=== PATIENT | female | born 1990 | race Caucasian/White ===

== ENCOUNTER 2016-12-16 13:08 | Emergency (ER) | payer BC ==
[~2016-12-16] VITALS: Ht 172.7 cm; Wt 65.9 kg
[~2016-12-16 13:08] MED LIST: BCP TD; LORTAB 5/500 501 TAB PO; MOTRIN600 MG PO
[2016-12-16 13:12] VITALS: TEMP 98.5
[2016-12-16 14:08] LABS: PH 5 (5-8); SQUAMOUS EPITHELIAL 0-2 /hpf; URINE APPEARANCE Clear; URINE BACTERIA Rare /hpf; URINE BILIRUBIN Negative (NEGATIVE); URINE BLOOD Negative (NEGATIVE); URINE COLOR Yellow; URINE GLUCOSE Negative (NEGATIVE); URINE KETONE Negative (NEGATIVE); URINE RBC 0-2 /hpf; URINE UROBILINOGEN Negative (NEGATIVE); URINE WBC 0-2 /hpf
[2016-12-16] MEDS ORDERED: NORCO 325 MG-51 TAB PO (15:03)
[2016-12-16 15:16] LABS: BASO # 0.1 (0.0-0.2); BASO % 0.4 % (0.0-2.0); EOS # 0.3 (0.0-0.7); EOS % 1.8 % (0-4.0); GRAN # 10.9 (1.4-6.5); GRAN % 77.7 % (42.2-75.2); HEMOGLOBIN 12.4 g/dl (12.5-16.0); LYMPH # 1.9 (1.2-3.4); LYMPH % 13.3 % (20.0-51.0); MEAN CELL VOLUME 88 fl (80.0-100.0); MEAN CORPUSCULAR HEMOGLOBIN 29 pg (27.0-31.0); MEAN CORPUSCULAR HGB CONC 33 g/dl (33.0-37.0); MEAN PLATELET VOLUME 10.1 fl (7.4-10.4); MONO # 0.9 (0.1-0.6); MONO % 6.4 % (1.7-9.3); PLATELET COUNT 327 K/mm3 (130-400); RED BLOOD COUNT 4.31 M/mm3 (4.10-5.30); REDCELL DISTRIBUTION WIDTH-CV 13.2 % (11.5-14.5)
[2016-12-16 15:22] LABS: ADJUSTED CALCIUM 9.2 mg/dL (8.4-10.2); ALBUMIN 4.1 gm/dL (3.5-5.0); BILIRUBIN,TOTAL 0.5 mg/dL (0.0-1.0); CALCIUM 9.3 mg/dL (8.4-10.2); CREATININE, serum 0.69 mg/dL (0.52-1.25); POTASSIUM 3.8 mmol/L (3.4-5.0); TOTAL PROTEIN 7.4 gm/dL (6.4-8.2)
[2016-12-16 16:29] VITALS: BP 118/73; PULSE 65
== END 2016-12-16 16:45 | disposition home or self-care (01) ==
LOC: COL.ER 13:08
PROVIDERS: Emergency Medicine
DX: S22.32XA Fracture of one rib, left side, initial encounter for closed fracture (principal); W55.12XA Struck by horse, initial encounter; Y92.008 Other place in unspecified non-institutional (private) residence as the place of occurrence of the external cause; R10.12 Left upper quadrant pain; J45.909 Unspecified asthma, uncomplicated
CPT/HCPCS: A9284; Q9967

== ENCOUNTER 2019-09-09 15:34 | Inpatient (IN) | payer BC ==
[~2019-09-09] VITALS: Ht 172.7 cm; Wt 87.7 kg
[~2019-09-09 15:34] MED LIST changes: +NORCO 325 MG-51 TAB PO
[2019-09-16] VITALS (41 sets, daily range): BP systolic 98–146; BP diastolic 49–83; PULSE 66–106; TEMP 97.5–98.3
--- NOTE | 2019-09-16 07:05 | NUR ---
Patient ambulatory onto unit for scheduled induction of labor with at side. Patient oriented to room and plan of care discussed, changes into gown. Patient reports good movement, denies contractions, vaginal bleeding, or leaking of fluid. Patient denies or medical complications. EFMs on, VS taken. IV started, labs drawn, LR infusing. Admission assessment completed. Consents signed. SVE /-1. Pitocin started per protocol. Questions answered. Patient denies needs at this time. Call light within reach.
[2019-09-16] MEDS ORDERED: PRENATAL VITAMI1 TA3 PO (07:25)
[2019-09-16] MEDS ORDERED: ZYRTEC 10MG10 MG PO (07:30)
--- NOTE | 2019-09-16 07:50 | NUR ---
to bedside. Plan of care discussed. Questions answered. AROM at 0752, small amount of clear fluid noted. SVE /-1 per provider.
[2019-09-16 08:39] LABS: BASO # 0.1 (0.0-0.2); BASO % 0.4 % (0.0-2.0); EOS # 0.2 (0.0-0.7); EOS % 1.6 % (0-4.0); GRAN # 10.8 (1.4-6.5); GRAN % 72.2 % (42.2-75.2); HEMOGLOBIN 13.1 g/dl (12.5-16.0); LYMPH # 2.2 (1.2-3.4); LYMPH % 14.8 % (20.0-51.0); MEAN CELL VOLUME 88 fl (80.0-100.0); MEAN CORPUSCULAR HEMOGLOBIN 30 pg (27.0-31.0); MEAN CORPUSCULAR HGB CONC 34 g/dl (33.0-37.0); MEAN PLATELET VOLUME 11.2 fl (7.4-10.4); MONO # 1.4 (0.1-0.6); MONO % 9.4 % (1.7-9.3); PLATELET COUNT 300 K/mm3 (130-400); RED BLOOD COUNT 4.43 M/mm3 (4.10-5.30)
--- NOTE | 2019-09-16 11:05 | NUR ---
1040: Patient requesting epidural. Shahriar ESPINOZA notified. 1048: Patient sitting up for epidural placement. 1055: Lidocaine. 1059: Epidural Catheter placed. 1101: Test Dose given by Shahriar ESPINOZA, no adverse reactions noted. Patient repostioned to left tilt. Will continue to monitor. Call light within reach.
--- NOTE | 2019-09-16 11:50 | NUR ---
Patient comfortable with epidural. Castillo catheter placed. SVE /-1. Patient repositioned to right tilt with peanut ball in place.
--- NOTE | 2019-09-16 13:05 | NUR ---
to bedside. SVE 3cm per provider, unsure of presentation. Bedside ultrasound performed to verify breech presentation. Need for section discussed, questions answered.
[2019-09-16] MEDS ORDERED: PERCOCET 325 MG1 TA2 PO (14:15)
[2019-09-16] MEDS ORDERED: MOTRIN 800800 MG/TAB PO (14:15)
[2019-09-17 00:58] VITALS: BP 124/63; PULSE 60; TEMP 98.6
[2019-09-17 04:00] VITALS: BP 117/70; PULSE 62; TEMP 98
[2019-09-17 08:15] VITALS: BP 121/59; PULSE 70; TEMP 97.5
[2019-09-17 12:00] VITALS: BP 114/51; PULSE 70; TEMP 98
[2019-09-17 16:55] VITALS: BP 118/61; PULSE 65; TEMP 97.3
[2019-09-17 20:30] VITALS: BP 117/52; PULSE 74; TEMP 98.3
[2019-09-18 06:55] VITALS: BP 129/69; PULSE 65; TEMP 98.1
== END 2019-09-18 13:20 | disposition home or self-care (01) | DRG 788 ==
LOC: LDR 15:34 → OB 09-16 17:30
PROVIDERS: ADMIT Obstetrics & Gynecology
PROC: 10D00Z1 Extraction of Products of Conception, Low, Open Approach (ICD-10-PCS; principal; 2019-09-16)
PROC: 10907ZC Drainage of Amniotic Fluid, Therapeutic from Products of Conception, Via Natural or Artificial Opening (ICD-10-PCS; 2019-09-16)
PROC: 3E033VJ Introduction of Other Hormone into Peripheral Vein, Percutaneous Approach (ICD-10-PCS; 2019-09-16)
DX: O48.0 Post-term pregnancy (principal); Z3A.40 40 weeks gestation of pregnancy; O32.1XX0 Maternal care for breech presentation, not applicable or unspecified; Z37.0 Single live birth; Z88.6 Allergy status to analgesic agent
CPT/HCPCS: J0171; J0690; J1100; J1885; J2405; J2590; J7120

== ENCOUNTER 2022-03-22 07:41 | Inpatient (IN) | payer BC ==
[~2022-03-22] VITALS: Ht 170.2 cm; Wt 90.0 kg
[2022-03-22] VITALS (28 sets, daily range): BP systolic 65–135; BP diastolic 39–90; PULSE 51–96; TEMP 97.4–97.9
[~2022-03-22 07:41] MED LIST changes: +MOTRIN 800800 MG/TAB PO; +PERCOCET 325 MG1 TA2 PO; +PRENATAL VITAMI1 TA3 PO; +ZYRTEC 10MG10 MG PO
[2022-03-22] MEDS ORDERED: PRENATAL TABLET PO (08:01)
--- NOTE | 2022-03-22 08:15 | NUR ---
0745- Pt arrives on unit ambulatory with complaints of contractions since yesterday afternoon, states they have gotten closer together but not consistantly every 5 mins. States, "they come in clusters". 0750- EFM and TOCO on and tracing well. O2 sat monitor on and tracing maternal HR. VSS. Assessments completed. Pt denies LOF or VB. +FM per Pt.
--- NOTE | 2022-03-22 09:15 | NUR ---
0850- Dr Hicks at bedside. SVE. POC explained, watch Pt for another hour and recheck SVE at 1000. Pt denies questionst.
[2022-03-22 11:10] LABS: BASO % 0.2 % (0.0-2.0); EOS % 0.2 % (0.0-4.0); GRAN # 9.3 K/mm3 (1.4-6.5); GRAN % 85.9 % (42.2-75.2); HEMATOCRIT 39.7 % (37.0-47.0); HEMOGLOBIN 13.4 g/dl (12.5-16.0); LYMPH # 0.8 K/mm3 (1.2-3.4); MEAN CELL VOLUME 86 fl (80.0-100.0); MEAN CORPUSCULAR HEMOGLOBIN 29 pg (27-31); MEAN CORPUSCULAR HGB CONC 34 g/dl (33.0-37.0); MEAN PLATELET VOLUME 12.2 fl (7.4-10.4); MONO # 0.7 K/mm3 (0.1-0.6); MONO % 6.1 % (1.7-9.3); PLATELET COUNT 323 K/mm3 (130-400); RED BLOOD COUNT 4.63 M/mm3 (4.10-5.30); REDCELL DISTRIBUTION WIDTH-CV 13.2 % (11.5-14.5)
[2022-03-23 03:05] VITALS: BP 120/57; PULSE 59; TEMP 97.6
[2022-03-23 07:15] VITALS: BP 119/73; PULSE 62; TEMP 97.8
[2022-03-23] MEDS ORDERED: IBU800 M1 PO (10:34)
[2022-03-23] MEDS ORDERED: PERCOCET 325 MG1 TA2 PO (10:34)
--- NOTE | 2022-03-23 12:51 | NUR ---
[employer] offered congrats to patient while spouse was in room.
[2022-03-23 16:10] VITALS: BP 123/72; PULSE 64; TEMP 97.8
[2022-03-23 19:35] VITALS: BP 118/64; PULSE 75; TEMP 97.2
--- NOTE | 2022-03-24 03:52 | NUR ---
PAIN MEDS DUE TO BE ADMINISTERED AT 0430 [facility]" DUE TO DAYLIGHT SAVINGS TIME.
[2022-03-24 07:45] VITALS: BP 131/67; PULSE 58; TEMP 97.8
[2022-03-24 16:36] VITALS: BP 128/74; PULSE 61; TEMP 98.2
[2022-03-24 20:00] VITALS: BP 124/74; PULSE 63; TEMP 97.8
[2022-03-25 08:29] VITALS: BP 130/76; PULSE 59; TEMP 97.5
[2022-03-25] MEDS ORDERED: HYDROCORTISO28.35 GM TOP (08:36)
== END 2022-03-25 14:15 | disposition home or self-care (01) | DRG 787 ==
LOC: LDRO 07:41 → LDR 10:10 → OB 10:10
PROVIDERS: Obstetrics & Gynecology; ADMIT Obstetrics & Gynecology
PROC: 10D00Z1 Extraction of Products of Conception, Low, Open Approach (ICD-10-PCS; principal; 2022-03-22)
DX: O34.211 Maternal care for low transverse scar from previous cesarean delivery (principal); O22.43 Hemorrhoids in pregnancy, third trimester; O99.824 Streptococcus B carrier state complicating childbirth; O35.EXX0 Maternal care for other (suspected) fetal abnormality and damage, fetal genitourinary anomalies, not applicable or unspecified; O69.0XX0 Labor and delivery complicated by prolapse of cord, not applicable or unspecified; Z3A.38 38 weeks gestation of pregnancy; Z37.0 Single live birth; Z88.5 Allergy status to narcotic agent; Z23 Encounter for immunization
CPT/HCPCS: J0690; J1100; J1885; J2270; J2370; J2405; J2590; J7120